=== PATIENT | male | born 1965 | race Caucasian/White ===

== ENCOUNTER 2019-10-06 14:35 | Inpatient (IN) | payer BC ==
--- NOTE | 2019-10-06 15:53 | BHS.RME ---
Substance Use & Tx History - Substance Use History Alcohol Substance amount: case of beer x 12 ounces Frequency of use: Daily Substance route: Oral Date of Last Use: 10/06/19 Cocaine (Crack) Substance amount: $100 Frequency of use: Daily Substance route: Smoking Date of Last Use: 10/06/19 Physical/Psych/Mental Status - Behavior General Behavior: Decreased activity Eye Contact: Normal - Cooperativeness Cooperativeness: Cooperative - Thinking Thought Processes: Tight Thought content: Future oriented - Physical Health Problems Is patient presently having any pain?: No Does patient presently have any injuries (include location): No Does patient currently have a fever: No Is patient : No CIWA Nausea/Vomitin Muscle Tremors: None Anxiety: 2 Agitation: 0-Normal Activity Paroxysmal Sweats: No Perspiration Orientation: 0-Oriented Tacttile Disturbances: 0-None Auditory Disturbances: 0-None Visual Disturbances: 0-None Headache: 2-Mild CIWA-Ar Total Score: 6
[2019-10-06 18:53] VITALS: BMI 26.4
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
[2019-10-06] MEDS ORDERED: ACETAMINOPHEN 325 MG TABLET (FP) PO PRN ×2 (19:27)
[2019-10-06] MEDS ORDERED: MAGNESIUM HYDROX 2400MG/30ML ORAL SUSPENSION 30 ML CUP PO PRN (19:27)
[2019-10-06] MEDS ORDERED: MAGNESIUM CITRATE 300 ML BOTTLE PO PRN (19:27)
[2019-10-06] MEDS ORDERED: METHOCARBAMOL 500 MG TABLET PO PRN (19:27)
[2019-10-06] MEDS ORDERED: MENTHOL/PHENOL 1 EACH UD MM PRN (19:27)
[2019-10-06] MEDS ORDERED: BISMUTH SUBSALICYLATE 524 MG/30 ML UD PO PRN (19:27)
[2019-10-06] MEDS ORDERED: NICOTINE POLACRILEX 2 MG GUM BUC PRN (19:27)
[2019-10-06] MEDS ORDERED: IBUPROFEN 400 MG TABLET (FP) PO PRN (19:27)
[2019-10-06] MEDS ORDERED: MAG HYDROX/AL HYDROX/SIMETH 30 ML UNIT-DOSE CUP PO PRN (19:27)
[2019-10-06] MEDS ORDERED: chlordiazePOXIDE HCL 25 MG CAPSULE PO PRN (19:28)
[2019-10-06] MEDS: THIAMINE HCL 100 MG TABLET (FP) PO SCH (22:32)
[2019-10-06] MEDS: chlordiazePOXIDE HCL 25 MG CAPSULE PO SCH (22:41)
[2019-10-07] MEDS: chlordiazePOXIDE HCL 25 MG CAPSULE PO SCH ×4 (05:39→22:31)
[2019-10-07 10:20] LABS: HEMATOCRIT 48.2 % (35.4-49); HEMOGLOBIN 16.1 GM/dL (11.7-16.9); MCH 32.1 pg (25.7-33.7); MCHC 33.5 g/dl (32.0-35.9); MEAN CELL VOLUME 95.9 fl (80-96); MEAN PLT VOLUME 9.7 fl (7.5-11.1); PLATELET COUNT 181 K/MM3 (134-434); RBC 5.03 M/mm3 (4.00-5.60); RDW 13.7 % (11.9-15.9); WHITE BLOOD COUNT 6.5 K/mm3 (4.0-10.0)
[2019-10-07] MEDS: PRENATAL VITAMINS W/ FOLIC ACID TABLET (FP) PO SCH (10:29)
--- NOTE | 2019-10-07 10:30 | EKG ---
Test Reason : Blood Pressure : / mmHG Vent. Rate : 098 BPM Atrial Rate : 098 BPM P-R Int : 158 ms QRS Dur : 084 ms QT Int : 340 ms P-R-T Axes : 022 065 085 degrees QTc Int : 434 ms SINUS RHYTHM WITH PREMATURE SUPRAVENTRICULAR COMPLEXES OTHERWISE NORMAL ECG NO PREVIOUS ECGS AVAILABLE Confirmed by KIM ABERNATHY, NICK ([id number]) on 10/07/2019 10:29:40 AM Referred By: JASPER Confirmed By:NICK ALVAREZ MD
[2019-10-07 10:44] LABS: ALBUMIN 3.1 g/dl (3.4-5.0); BILIRUBIN,TOTAL 0.2 mg/dL (0.2-1); BLOOD UREA NITROGEN 14.2 mg/dL (7-18); CALCIUM 8.3 mg/dL (8.5-10.1); CREATININE 0.8 mg/dL (0.55-1.3); POTASSIUM 4.5 mmol/L (3.5-5.1); TOT PROT 5.9 g/dl (6.4-8.2)
--- NOTE | 2019-10-07 11:35 | PN ---
[facility] CIWA - CIWA Score Nausea/Vomitin-No Nausea/No Vomiting Muscle Tremors: 3 Anxiety: 3 Agitation: 1-Slight > Activity Paroxysmal Sweats: 2 Orientation: 0-Oriented Tacttile Disturbances: 1-Very Mild Itch/Numbness Auditory Disturbances: 0-None Visual Disturbances: 2-Mild Sensitivity Headache: 0-None Present CIWA-Ar Total Score: 12 S Progress Note (SOAP) Subjective: 54 years old male admitted on 10/06/19 for alcohol withdrawal sx management treating with libirum detox regiment tremor irritable limited conversation with the staff Objective: 10/07/19 11:35 Vital Signs Temperature 97.4 F L 10/07/19 08:30 Pulse Rate 96 H 10/07/19 08:30 Respiratory Rate 20 10/07/19 08:30 Blood Pressure 130/80 10/07/19 08:30 O2 Sat by Pulse Oximetry (%) Laboratory Last Values WBC 6.5 K/mm3 (4.0-10.0) 10/07/19 07:58 RBC 5.03 M/mm3 (4.00-5.60) 10/07/19 07:58 Hgb 16.1 GM/dL (11.7-16.9) 10/07/19 07:58 Hct 48.2 % (35.4-49) 10/07/19 07:58 MCV 95.9 fl (80-96) 10/07/19 07:58 MCH 32.1 pg (25.7-33.7) 10/07/19 07:58 MCHC 33.5 g/dl (32.0-35.9) 10/07/19 07:58 RDW 13.7 % (11.9-15.9) 10/07/19 07:58 Plt Count 181 K/MM3 (134-434) 10/07/19 07:58 MPV 9.7 fl (7.5-11.1) 10/07/19 07:58 Sodium 142 mmol/L (136-145) 10/07/19 07:58 Potassium 4.5 mmol/L (3.5-5.1) 10/07/19 07:58 Chloride 113 mmol/L (98-107) H 10/07/19 07:58 Carbon Dioxide 24 mmol/L (21-32) 10/07/19 07:58 Anion Gap 6 MMOL/L (8-16) L 10/07/19 07:58 BUN 14.2 mg/dL (7-18) 10/07/19 07:58 Creatinine 0.8 mg/dL (0.55-1.3) 10/07/19 07:58 Est GFR (CKD-EPI)AfAm 116.56 10/07/19 07:58 Est GFR (CKD-EPI)NonAf 100.57 10/07/19 07:58 Random Glucose 81 mg/dL (74-106) 10/07/19 07:58 Calcium 8.3 mg/dL (8.5-10.1) L 10/07/19 07:58 Total Bilirubin 0.2 mg/dL (0.2-1) 10/07/19 07:58 AST 22 U/L (15-37) 10/07/19 07:58 ALT 36 U/L (13-61) 10/07/19 07:58 Alkaline Phosphatase 64 U/L (45-117) 10/07/19 07:58 Total Protein 5.9 g/dl (6.4-8.2) L 10/07/19 07:58 Albumin 3.1 g/dl (3.4-5.0) L 10/07/19 07:58 RPR Titer Nonreactive (NONREACTIVE) 10/07/19 07:58 lab noted Assessment: 10/07/19 11:35 alcohol withdrawal Plan: librium regiment
[2019-10-07] MEDS: THIAMINE HCL 100 MG TABLET (FP) PO SCH (22:31)
[2019-10-08] MEDS: chlordiazePOXIDE HCL 25 MG CAPSULE PO SCH ×4 (05:57→22:28)
[2019-10-08] MEDS: PRENATAL VITAMINS W/ FOLIC ACID TABLET (FP) PO SCH (10:24)
--- NOTE | 2019-10-08 11:15 | PN ---
[facility] CIWA - CIWA Score Nausea/Vomitin-No Nausea/No Vomiting Muscle Tremors: None Anxiety: 0-No Anxiety, at Ease Agitation: 0-Normal Activity Paroxysmal Sweats: 1-Minimal Palms Moist Orientation: 2-Disoriented Date<2 days Tacttile Disturbances: 0-None Auditory Disturbances: 1-Very Mild Visual Disturbances: 0-None Headache: 3-Moderate CIWA-Ar Total Score: 7 BHS Progress Note (SOAP) Subjective: Complains of headache grades 8/10 Objective: 10/08/19 11:13 Laboratory Tests 10/07/19 10/07/19 10/07/19 07:58 07:58 07:58 WBC 6.5 RBC 5.03 Hgb 16.1 Hct 48.2 MCV 95.9 MCH 32.1 MCHC 33.5 RDW 13.7 Plt Count 181 MPV 9.7 Sodium 142 Potassium 4.5 Chloride 113 H Carbon Dioxide 24 Anion Gap 6 L BUN 14.2 Creatinine 0.8 Est GFR (CKD-EPI)AfAm 116.56 Est GFR (CKD-EPI)NonAf 100.57 Random Glucose 81 Calcium 8.3 L Total Bilirubin 0.2 AST 22 ALT 36 Alkaline Phosphatase 64 Total Protein 5.9 L Albumin 3.1 L RPR Titer Nonreactive Vital Signs Temperature 95.8 F L 10/08/19 08:52 Pulse Rate 102 H 10/08/19 08:52 Respiratory Rate 20 10/08/19 08:52 Blood Pressure 134/95 10/08/19 08:52 O2 Sat by Pulse Oximetry (%) PE gnl; wDWN in no distress Mental status: awake, alert, follows complex commands, nl language function Motor: No postural tremor Coordination: intact Assessment: 10/08/19 11:15 1. Alcohol use disorder 2. Headache Plan: 1. continue Librium withdrawal protocol 2. encouraged patient to ask for ibuprofen for headache
[2019-10-08] MEDS: THIAMINE HCL 100 MG TABLET (FP) PO SCH (22:28)
[2019-10-09] MEDS ORDERED: chlordiazePOXIDE HCL 10 MG CAPSULE PO PRN
[2019-10-09] MEDS: chlordiazePOXIDE HCL 10 MG CAPSULE PO SCH ×4 (06:30→22:37)
[2019-10-09] MEDS: PRENATAL VITAMINS W/ FOLIC ACID TABLET (FP) PO SCH (10:25)
--- NOTE | 2019-10-09 11:03 | PN ---
S CIWA - CIWA Score Nausea/Vomitin-No Nausea/No Vomiting Muscle Tremors: None Anxiety: 2 Agitation: 0-Normal Activity Paroxysmal Sweats: 2 Orientation: 0-Oriented Tacttile Disturbances: 0-None Auditory Disturbances: 0-None Visual Disturbances: 0-None Headache: 2-Mild CIWA-Ar Total Score: 6 BHS Progress Note (SOAP) Subjective: Complains of anxiety, headaches, and sweats. Objective: 10/09/19 11:02 Vital Signs Temperature 96.8 F L 10/09/19 08:46 Pulse Rate 108 H 10/09/19 08:46 Respiratory Rate 17 10/09/19 08:46 Blood Pressure 132/85 10/09/19 08:46 O2 Sat by Pulse Oximetry (%) Laboratory Last Values WBC 6.5 K/mm3 (4.0-10.0) 10/07/19 07:58 RBC 5.03 M/mm3 (4.00-5.60) 10/07/19 07:58 Hgb 16.1 GM/dL (11.7-16.9) 10/07/19 07:58 Hct 48.2 % (35.4-49) 10/07/19 07:58 MCV 95.9 fl (80-96) 10/07/19 07:58 MCH 32.1 pg (25.7-33.7) 10/07/19 07:58 MCHC 33.5 g/dl (32.0-35.9) 10/07/19 07:58 RDW 13.7 % (11.9-15.9) 10/07/19 07:58 Plt Count 181 K/MM3 (134-434) 10/07/19 07:58 MPV 9.7 fl (7.5-11.1) 10/07/19 07:58 Sodium 142 mmol/L (136-145) 10/07/19 07:58 Potassium 4.5 mmol/L (3.5-5.1) 10/07/19 07:58 Chloride 113 mmol/L (98-107) H 10/07/19 07:58 Carbon Dioxide 24 mmol/L (21-32) 10/07/19 07:58 Anion Gap 6 MMOL/L (8-16) L 10/07/19 07:58 BUN 14.2 mg/dL (7-18) 10/07/19 07:58 Creatinine 0.8 mg/dL (0.55-1.3) 10/07/19 07:58 Est GFR (CKD-EPI)AfAm 116.56 10/07/19 07:58 Est GFR (CKD-EPI)NonAf 100.57 10/07/19 07:58 Random Glucose 81 mg/dL (74-106) 10/07/19 07:58 Calcium 8.3 mg/dL (8.5-10.1) L 10/07/19 07:58 Total Bilirubin 0.2 mg/dL (0.2-1) 10/07/19 07:58 AST 22 U/L (15-37) 10/07/19 07:58 ALT 36 U/L (13-61) 10/07/19 07:58 Alkaline Phosphatase 64 U/L (45-117) 10/07/19 07:58 Total Protein 5.9 g/dl (6.4-8.2) L 10/07/19 07:58 Albumin 3.1 g/dl (3.4-5.0) L 10/07/19 07:58 RPR Titer Nonreactive (NONREACTIVE) 10/07/19 07:58 Labs noted, no abnormality noted. Assessment: 10/09/19 11:03 Pt is AO x3, in no acute respiratory distress. Withdrawal symptoms noted. Moving all extremities. Plan: Continue detox protocol.
[2019-10-09] MEDS: THIAMINE HCL 100 MG TABLET (FP) PO SCH (22:37)
[2019-10-10] MEDS: chlordiazePOXIDE HCL 10 MG CAPSULE PO SCH ×2 (05:50→19:42)
[2019-10-10] MEDS: PRENATAL VITAMINS W/ FOLIC ACID TABLET (FP) PO SCH (10:32)
--- NOTE | 2019-10-10 12:31 | PN ---
[facility] CIWA - CIWA Score Nausea/Vomitin-No Nausea/No Vomiting Muscle Tremors: None Anxiety: 2 Agitation: 0-Normal Activity Paroxysmal Sweats: No Perspiration Orientation: 0-Oriented Tacttile Disturbances: 0-None Auditory Disturbances: 0-None Visual Disturbances: 1-Very Mild Sensitivity Headache: 0-None Present CIWA-Ar Total Score: 3 S Progress Note (SOAP) Subjective: 54 years old male admitted on 10/06/19 for alcohol withdrawal sx management treating with librium detox regiment feeling better today sitting on the edge of the bed eating breakfast discuss aftercare with staff Objective: 10/10/19 12:31 Vital Signs Temperature 96.3 F L 10/10/19 08:37 Pulse Rate 102 H 10/10/19 08:37 Respiratory Rate 18 10/10/19 08:37 Blood Pressure 119/78 10/10/19 08:37 O2 Sat by Pulse Oximetry (%) Laboratory Last Values WBC 6.5 K/mm3 (4.0-10.0) 10/07/19 07:58 RBC 5.03 M/mm3 (4.00-5.60) 10/07/19 07:58 Hgb 16.1 GM/dL (11.7-16.9) 10/07/19 07:58 Hct 48.2 % (35.4-49) 10/07/19 07:58 MCV 95.9 fl (80-96) 10/07/19 07:58 MCH 32.1 pg (25.7-33.7) 10/07/19 07:58 MCHC 33.5 g/dl (32.0-35.9) 10/07/19 07:58 RDW 13.7 % (11.9-15.9) 10/07/19 07:58 Plt Count 181 K/MM3 (134-434) 10/07/19 07:58 MPV 9.7 fl (7.5-11.1) 10/07/19 07:58 Sodium 142 mmol/L (136-145) 10/07/19 07:58 Potassium 4.5 mmol/L (3.5-5.1) 10/07/19 07:58 Chloride 113 mmol/L (98-107) H 10/07/19 07:58 Carbon Dioxide 24 mmol/L (21-32) 10/07/19 07:58 Anion Gap 6 MMOL/L (8-16) L 10/07/19 07:58 BUN 14.2 mg/dL (7-18) 10/07/19 07:58 Creatinine 0.8 mg/dL (0.55-1.3) 10/07/19 07:58 Est GFR (CKD-EPI)AfAm 116.56 10/07/19 07:58 Est GFR (CKD-EPI)NonAf 100.57 10/07/19 07:58 Random Glucose 81 mg/dL (74-106) 10/07/19 07:58 Calcium 8.3 mg/dL (8.5-10.1) L 10/07/19 07:58 Total Bilirubin 0.2 mg/dL (0.2-1) 10/07/19 07:58 AST 22 U/L (15-37) 10/07/19 07:58 ALT 36 U/L (13-61) 10/07/19 07:58 Alkaline Phosphatase 64 U/L (45-117) 10/07/19 07:58 Total Protein 5.9 g/dl (6.4-8.2) L 10/07/19 07:58 Albumin 3.1 g/dl (3.4-5.0) L 10/07/19 07:58 RPR Titer Nonreactive (NONREACTIVE) 10/07/19 07:58 lab noted Assessment: 10/10/19 12:32 alcohol withdrawal Plan: librium regiment
[2019-10-10] MEDS: THIAMINE HCL 100 MG TABLET (FP) PO SCH (22:32)
[2019-10-11] MEDS ORDERED: chlordiazePOXIDE HCL 10 MG CAPSULE PO ONE (05:00)
[2019-10-11] MEDS: PRENATAL VITAMINS W/ FOLIC ACID TABLET (FP) PO SCH (11:06)
[2019-10-11 13:43] VITALS: BP 128/77; PULSE 103; TEMP 97.5
--- NOTE | 2019-10-11 14:47 | DS ---
[facility] Detox Discharge Summary Admission Date: 10/06/19 Discharge Date: 10/11/19 - History Present History: Alcohol Dependence Additional Comments: 54 years old male admitted on 10/06/19 for alcohol withdrawal sx management treated with librium detox regiment Mr Lenz has completed the librium regiment and is tolerated well alert oriented x 3 cardiac s1s2 regular rate rhythm ekg indicated premature ventricular complets asymptomatic no chest pain no dizziness no shortness of breath respiratory clear lungs bilaterally on auscultation abdomen soft no rebound tenderness Pertinent Past History: time for discharge 32 minutes - Physical Exam Results Vital Signs: Vital Signs Temperature 97.5 F L 10/11/19 13:06 Pulse Rate 103 H 10/11/19 13:06 Respiratory Rate 16 10/11/19 13:06 Blood Pressure 128/77 10/11/19 13:06 O2 Sat by Pulse Oximetry (%) Pertinent Admission Physical Exam Findings: alcohol withdrawal Vital Signs Temperature 97.5 F L 10/11/19 13:06 Pulse Rate 103 H 10/11/19 13:06 Respiratory Rate 16 10/11/19 13:06 Blood Pressure 128/77 10/11/19 13:06 O2 Sat by Pulse Oximetry (%) Laboratory Last Values WBC 6.5 K/mm3 (4.0-10.0) 10/07/19 07:58 RBC 5.03 M/mm3 (4.00-5.60) 10/07/19 07:58 Hgb 16.1 GM/dL (11.7-16.9) 10/07/19 07:58 Hct 48.2 % (35.4-49) 10/07/19 07:58 MCV 95.9 fl (80-96) 10/07/19 07:58 MCH 32.1 pg (25.7-33.7) 10/07/19 07:58 MCHC 33.5 g/dl (32.0-35.9) 10/07/19 07:58 RDW 13.7 % (11.9-15.9) 10/07/19 07:58 Plt Count 181 K/MM3 (134-434) 10/07/19 07:58 MPV 9.7 fl (7.5-11.1) 10/07/19 07:58 Sodium 142 mmol/L (136-145) 10/07/19 07:58 Potassium 4.5 mmol/L (3.5-5.1) 10/07/19 07:58 Chloride 113 mmol/L (98-107) H 10/07/19 07:58 Carbon Dioxide 24 mmol/L (21-32) 10/07/19 07:58 Anion Gap 6 MMOL/L (8-16) L 10/07/19 07:58 BUN 14.2 mg/dL (7-18) 10/07/19 07:58 Creatinine 0.8 mg/dL (0.55-1.3) 10/07/19 07:58 Est GFR (CKD-EPI)AfAm 116.56 10/07/19 07:58 Est GFR (CKD-EPI)NonAf 100.57 10/07/19 07:58 Random Glucose 81 mg/dL (74-106) 10/07/19 07:58 Calcium 8.3 mg/dL (8.5-10.1) L 10/07/19 07:58 Total Bilirubin 0.2 mg/dL (0.2-1) 10/07/19 07:58 AST 22 U/L (15-37) 10/07/19 07:58 ALT 36 U/L (13-61) 10/07/19 07:58 Alkaline Phosphatase 64 U/L (45-117) 10/07/19 07:58 Total Protein 5.9 g/dl (6.4-8.2) L 10/07/19 07:58 Albumin 3.1 g/dl (3.4-5.0) L 10/07/19 07:58 RPR Titer Nonreactive (NONREACTIVE) 10/07/19 07:58 lab noted - Treatment Hospital Course: Detox Protocol Followed, Detoxed Safely, Responded well, Discharged Condition Good, Rehab Referral Accepted Patient has Accepted [facility] - Medication Discharge Medications: Ambulatory Orders NK [No Known Home Medication] 11/23/15 - Diagnosis (1) Alcohol dependence Status: Acute Qualifiers: Substance use status: uncomplicated Qualified Code(s): F10.20 - Alcohol dependence, uncomplicated (2) Nicotine dependence Status: Acute Qualifiers: Nicotine product type: cigarettes Substance use status: in withdrawal Qualified Code(s): F17.213 - Nicotine dependence, cigarettes, with withdrawal - AMA Did Patient Leave Against Medical Advice: No CIWA Score - CIWA Score Nausea/Vomitin-No Nausea/No Vomiting Muscle Tremors: None Anxiety: 1-Mildly Anxious Agitation: 0-Normal Activity Paroxysmal Sweats: No Perspiration Orientation: 0-Oriented Tacttile Disturbances: 0-None Auditory Disturbances: 0-None Visual Disturbances: 1-Very Mild Sensitivity Headache: 0-None Present CIWA-Ar Total Score: 2
== END 2019-10-11 13:51 | disposition home or self-care (01) | DRG 897 ==
LOC: YASAS 14:35 → Y3N 19:48
PROVIDERS: ADMIT Allergy & Immunology; ATTEND Allergy & Immunology
PROC: HZ2ZZZZ Detoxification Services for Substance Abuse Treatment (ICD-10-PCS; principal; 2019-10-06)
DX: F10.230 Alcohol dependence with withdrawal, uncomplicated (principal); F14.20 Cocaine dependence, uncomplicated; F17.210 Nicotine dependence, cigarettes, uncomplicated; Z95.2 Presence of prosthetic heart valve; Z86.79 Personal history of other diseases of the circulatory system; Z86.69 Personal history of other diseases of the nervous system and sense organs
CPT/HCPCS: 36415; 80053; 85027; 86593; 93005; 93010